=== PATIENT | male | born 1995 | race Caucasian/White ===

== ENCOUNTER 2022-05-13 14:03 | Emergency (ER) | payer MEDICAID, SELFPAY ==
[2022-05-13 14:11] VITALS: BP 142/91; PULSE 82; RESP 15; TEMP 36.4; O2SAT 97; BMI 40.6
--- NOTE | 2022-05-13 14:51 | ED_ITS ---
HPI - Neck Pain/Injury General: Chief Complaint: Neck Pain/Injury Stated Complaint: neck pain Time Seen by Provider: 05/13/22 14:34 Source: patient Mode of arrival: ambulatory History of Present Illness: 26-year-old male presents emerged complaining of neck pain pain with movement of his neck no pain radiating into the arms. He cannot recall any particular injury or event that precipitated it. No loss of function. No previous injury trauma or surgery. MD complaint: neck pain Onset (ago): day(s) Place: home Severity: moderate Duration: constant Relieving factors: none Exacerbating factors: none Associated symptoms: Denies dysphagia, difficulty walking, dizziness, fevers/chills, headache(s), nausea, swollen glands, tingling or weakness Treatments prior to arrival: none Review of Systems Const: Denies: fever(s), chills, body aches, change in appetite, fatigue or malaise ENMT: Denies: throat pain, ear or mastoid pain, nasal discharge or nasal congestion Card: Denies: chest pain, edema, dyspnea on exertion or orthopnea Resp: Denies: dyspnea, productive cough or non-productive cough GI: Denies: abdominal pain, nausea, vomiting or dysphagia : Denies: flank pain, dysuria, urinary frequency or urinary urgency Skin/Breast: Denies: rash or pruritus Neuro: Denies: headache(s), difficulty walking or dizziness PFSH ED PFSH: Medical History (Updated 05/13/22 @ 14:53 by Ricky Robles DO) Asthma Social History (Updated 05/13/22 @ 14:53 by Ricky Robles DO) Smoking and tobacco status: never smoked Alcohol intake: never Physical Exam Const: COMMON NORMALS: no acute distress GENERAL APPEARANCE: cooperative and comfortable ORIENTATION/CONSCIOUSNESS: Yes awake, Yes oriented to person, Yes oriented to place and Yes oriented to time HENMT: COMMON NORMALS: normocephalic, atraumatic and hearing grossly normal bilaterally HEAD & SCALP: normocephalic and atraumatic Resp: COMMON NORMALS: normal respiratory effort, No retractions, No use of accessory muscles and clear to auscultation bilaterally AUSCULTATION: clear to auscultation bilaterally Cardio: COMMON NORMALS: regular rate, regular rhythm and No murmurs present (Cardio) RATE: regular rate RHYTHM: regular rhythm GI: COMMON NORMALS: Soft to palpation and No hepatosplenomegaly present AUSCULTATION: Yes normoactive bowel sounds PALPATION: Yes Soft to palpation, No Tenderness to palpation present (GI), No Guarding due to palpation present (GI) and Yes No hepatosplenomegaly present Extremity: COMMON NORMALS: normal to inspection, capillary refill normal, no clubbing, cyanosis or edema, no calf tenderness and no pedal edema Neuro: SENSORIUM/ORIENTATION: Yes oriented to person, Yes oriented to place and Yes oriented to time Skin: COMMON NORMALS: no rashes or lesions noted GENERAL SKIN EXAM: no rashes or lesions noted Course Vital Signs: Vital signs: Vital Signs Temperature 97.5 F L 05/13/22 14:11 Pulse Rate 82 05/13/22 14:11 Respiratory Rate 15 05/13/22 14:11 Blood Pressure 142/91 05/13/22 14:11 Pulse Oximetry 97 05/13/22 14:11 Oxygen Delivery Me thod 05/13/22 14:11 MDM - Neck Pain/Injury Medical Decision Making No focal deficits no radicular like symptoms. Treat as musculoskeletal neck pain. No signs of meningeal irritation. At this point I do not think plain films would be very helpful there is no evidence of trauma or report by history. Discharge home with muscle relaxers and NSAIDs steroid taper follow-up with primary care if not improving. Medical Records I reviewed the patient's medical records. Lab Data I reviewed the patient's lab results. Discharge Plan Discharge Patient Disposition: Home Clinical Impression: Strain of neck muscle Condition: Stable Prescriptions: New prednisone 20 mg tablet 20 mg PO TID Qty: 15 0RF Rx Instructions: 1 p.o. 3 times daily x3 days, 1 p.o. twice daily x2 days, 1 p.o. daily x2 days diclofenac sodium 75 mg tablet,delayed release (DR/EC) 75 mg PO Q12H PRN (Reason: pain) Qty: 20 0RF tizanidine 4 mg tablet 4 mg PO Q6H PRN (Reason: muscle spasticity) Qty: 20 0RF Rx Instructions: do not exceed 3 doses per 24 hrs Discharge Orders: Discharge ED (Routine); Ordered 05/13/22 Ordered By: Ricky Robles Discharge Diet: Usual diet Discharge Activity: Limit activity as instructed Patient Instructions: Opioid Safety, Pain Management Coding Level of Care Code ED Sales Strategy Manager for Christina Thakkar
[2022-05-13] MEDS: dexamethasone 10 mg/mL INJ IVP (14:58)
[2022-05-13] MEDS: orphenadrine 30 mg/mL Inj 2 mL 60 MG IVP (15:00)
[2022-05-13] MEDS: ketorolac 30 mg/mL INJ IVP (15:02)
[2022-05-13 15:33] VITALS: BP 151/99; PULSE 88; RESP 16; O2SAT 97
== END 2022-05-13 15:35 | disposition home or self-care (01) ==
PROVIDERS: Emergency Provider Family Medicine
DX: S16.1XXA Strain of muscle, fascia and tendon at neck level, initial encounter (principal); X58.XXXA Exposure to other specified factors, initial encounter
CPT/HCPCS: 96374; 96375; 99284; J1100; J1885; J2360

== ENCOUNTER → 2022-07-04 14:35 | Outpatient (BNVA) | payer MEDICAID, SELFPAY | PROVIDERS: Visit Provider Nurse Practitioner Family | DX: J45.909 Unspecified asthma, uncomplicated (principal); R05.9 Cough, unspecified; E66.01 Morbid (severe) obesity due to excess calories; Z68.41 Body mass index [BMI] 40.0-44.9, adult; G47.33 Obstructive sleep apnea (adult) (pediatric) | CPT/HCPCS: 80053; 80061 ==

== ENCOUNTER 2024-02-22 13:19 | Outpatient (CLI) | payer MEDICAID, SELFPAY ==
--- NOTE | 2024-02-22 13:22 | XRR_ITS ---
PROCEDURE INFORMATION: Exam: XR Right Knee Exam date and time: 02/22/2024 1:33 PM Age: 28 years old Clinical indication: Right; Patient HX: -- RT knee pain that radiates down leg x 1 yr, grinding feeling in knee joint, no specific injury; Additional info: R knee joint pain TECHNIQUE: Imaging protocol: Radiologic exam of the right knee. Views: 3 views. COMPARISON: No relevant prior studies available. FINDINGS: Bones/joints: No acute fracture or dislocation. No significant joint space narrowing. No suprapatellar fullness or effusion. A small rounded to oval-shaped calcification or ossification overlies the posterior mid to lateral aspect of the knee joint, and consideration to loose body. A fabella is also suggested posteriorly. 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 Soft tissues: No significant focal soft tissue abnormality. XR/XR knee RT 3V* [id number] IMPRESSION: 1. No acute fracture or dislocation. 2. No significant joint space narrowing. 3. Small rounded oval-shaped calcification or ossification about the posterior mid to lateral aspect of the knee and consider loose body. 4. 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
== END 2024-02-22 13:20 | disposition home or self-care (01) ==
LOC: RAD 13:21
PROVIDERS: PCP Nurse Practitioner Family; Visit Provider Nurse Practitioner Family
DX: Q74.1 Congenital malformation of knee (principal); M25.761 Osteophyte, right knee
CPT/HCPCS: 73562

== ENCOUNTER → 2024-03-29 10:12 | Outpatient (BNVA) | payer MEDICAID, SELFPAY | PROVIDERS: PCP Nurse Practitioner Family; Visit Provider Student in an Organized Health Care Education/Training Program | DX: M25.561 Pain in right knee (principal); S83.8X1A Sprain of other specified parts of right knee, initial encounter; X58.XXXA Exposure to other specified factors, initial encounter; M23.41 Loose body in knee, right knee | CPT/HCPCS: 73560; 73565 ==

== ENCOUNTER 2024-05-14 16:05 | Outpatient (CLI) | payer MEDICAID, SELFPAY ==
--- NOTE | 2024-05-14 16:10 | MR_ITS ---
WS: [id number] MRI RIGHT KNEE NONCONTRAST TECHNIQUE: Axial PD, coronal PD fat sat, coronal PD, sagittal PD, and sagittal PD fat-sat images obta ined. CLINICAL INFORMATION: R/O MENISCAL INJURY COMPARISON: None. FINDINGS: ACL and PCL are intact. Distal quadriceps and patella tendons are intact. Grade III chondromalacia ad vanced for patient this age with lateral subluxation. Shallow trochlear groove. Recommend correlation for patellar instability. 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 1 or 2 additional bony fragments which may represe nt chronic avulsions or bipartite patella. Fissuring involving the lateral patellar facet advanced fo r patient this age. Tiny suspected osteochondral defect/loose body along the medial femoral condyle as seen on the radiog raph. This is difficult to visualize and measures approximately 5 mm. No edema. Distal quadriceps and patella tendons are intact. Medial and collateral ligaments appear intact. Smal l suprapatellar effusion. Normal popliteal fossa. Horizontal tear involving the lateral meniscus extending to the articular surface. Medial meniscus ap pears intact. No edema in the femoral condyles. Cystic appearing degenerative change along the tibial spine at the ACL insertion. MR/MR knee RT wo con* [id number] IMPRESSION: 1. Moderate chondromalacia patella with fissuring involving the lateral patell ar facet advanced for patient this age. Shallow trochlear groove. Lateral sublu xation of the patella. Recommend correlation for patellar instability. 2. Bony fragmentation involving the medial patellar facet with 3 separate frag ments suspicious for chronic unhealed avulsions. Eccentric crescent shaped frag ment suspicious for chronic avulsion. There may be superimposed bipartite yañez la as well. Chronic thinning of the medial patellar retinaculum. 3. Previously described osteochondral defect along the medial femoral condyle is difficult to visualize due to size and positioning measuring 4 to 5 mm but s uspicious for a small loose body. This is best seen on the axial imaging. 4. Horizontal tear involving the lateral meniscus extending to the articular s urface. Outbridge grading: grade III: partial-thickness cartilage loss with focal ulcer ation
== END 2024-05-14 16:06 | disposition home or self-care (01) ==
LOC: RAD 16:06
PROVIDERS: PCP Nurse Practitioner Family; Visit Provider Student in an Organized Health Care Education/Training Program
DX: M22.41 Chondromalacia patellae, right knee (principal); S83.001A Unspecified subluxation of right patella, initial encounter; S83.281A Other tear of lateral meniscus, current injury, right knee, initial encounter; X58.XXXA Exposure to other specified factors, initial encounter
CPT/HCPCS: 73721

== ENCOUNTER 2024-07-23 15:04 | Outpatient (CLI) | payer MEDICAID, SELFPAY | END 2024-07-23 15:05 | disposition home or self-care (01) | LOC: SLEEP 15:05 | PROVIDERS: PCP Nurse Practitioner Family; Visit Provider Nurse Practitioner Family | DX: G47.33 Obstructive sleep apnea (adult) (pediatric) (principal) | CPT/HCPCS: G0399 ==

== ENCOUNTER 2024-08-22 11:18 | Day surgery (SDC) | payer OTHER, MEDICAID, SELFPAY ==
[2024-08-22] VITALS (12 sets, daily range): BP systolic 120–156; BP diastolic 71–92; PULSE 74–105; RESP 16–18; TEMP 36.3–36.6; O2SAT 92–94; BMI 42.2
--- NOTE | 2024-08-22 12:09 | P.ANESASSM_ITS ---
Pre-Anesthetic Assessment Height/Weight: Height 1.85 m Weight 145.15 kg Operation Date: 08/22/24 13:45 Proposed Procedures p Knee Arthroscopy w/ Lateral Menisectomy vs repair(Right) - Chad Gloria DO s Loose Body Removal and possible microfracturing(Right) - Chad Gloria DO s patellofemoral chondroplasty(Right) - Chad Gloria DO Familial anesthetic complications: None Was Beta Rachna taken within 24 hours: N/A Was Clonidine taken within 24 hours: N/A Last intake: Intake Last Liquid Date 08/21/24 Last Liquid Time 21:30 Last Solid Date 08/21/24 Last Solid Time 21:30 Social No alcohol and No tobacco Exam alert, oriented x 3, clear to auscultation bilaterally and regular rate & rhythm Airway Mallampati: Class II Dentition: other (None) Comments: Comments: Large neck circumference Pulmonary Sleep Apnea CV/HEM Hypertension Anesthetic Plan ASA status: 3 Anesthesia: General Risk of > 500 ml blood loss (7ml/kg in children): No Medications/Allergies Home Medications ?Medication ?Instructions ?Recorded ?Confirmed ?Last Taken ?Type albuterol sulfate 90 mcg/actuation 2 puff inhalation 6 XD PRN 07/04/22 08/22/24 08/08/24 Rx aerosol inhaler (Ventolin HFA) shortness of breath or wheezing #8.5 grams budesonide-formoterol HFA 160 2 puff inhalation Q12H # 10.2 grams 07/04/22 08/22/24 08/21/24 Rx mcg-4.5 mcg/actuation aerosol inhaler (Symbicort) escitalopram oxalate 10 mg tablet 10 mg PO DAILY 30 da ys #30 tabs 09/06/22 08/21/24 08/21/24 Rx (Lexapro) mupirocin calcium 2 % topical cream 1 applic topical B ID #15 grams 09/06/22 08/21/24 Unknown Rx meloxicam 15 mg tablet 15 mg PO DAILY #30 tabs 03/1708/21/24 08/21/24 Rx Allergies Allergy/AdvReac Type Severity Reaction Status Date / Time No Known Allergies Allergy Verified 08/21/24 12:44 [facility] Anesthesia Medical History Obesity (BMI 30-39.9) Asthma Social History (Updated 07/04/24 @ 13:01 by Kelin Saini LPN) Smoking and tobacco/nicotine status: never used tobacco/nicotine Quit status (tobacco/nicotine): has quit using Former quit date comment: chewed tobacco Alcohol intake: never Data Anesthesia Cardiac Studies: No Data to Display
[2024-08-22] MEDS: sodium chloride 0.9% 1,000 ML 30 ML IV (12:29)
[2024-08-22] MEDS: ketorolac 30 mg/mL INJ IVP (12:30)
[2024-08-22] MEDS: acetaminophen 1,000 MG/100 ML PIGGYBACK 400 MG IV (12:35)
[2024-08-22] MEDS: scopolamine 1 mg PATCH 1 PATCH TRANSDERMA (12:43)
--- NOTE | 2024-08-22 12:43 | W.PM.OPSFHP ---
Same Day Surgery H&P Indication for Procedure/HPI DATE OF PROCEDURE: August 22, 2024 CHIEF COMPLAINT/INDICATIONFOR SURGICAL PROCEDURE: Right knee lateral meniscus tear, articular chondral defect, patellofemoral chondromalacia PREOP DIAGNOSIS: Right knee lateral meniscus tear, articular chondral defect, patellofemoral PLANNED PROCEDURE: Operation Date: 08/22/24 13:45 Proposed Procedures p Knee Arthroscopy w/ Lateral Menisectomy vs repair(Right) - DO nakul El Loose Body Removal and possible microfracturing(Right) - DO nakul El patellofemoral chondroplasty(Right) - Chad Gloria DO Medications/Allergies* Allergies/Adverse Reactions Allergy/AdvReac Type Severity Reaction Status Date / Time No Known Allergies Allergy Verified 08/21/24 12:44 Current Medications: Generic Name Dose Route Start Last Admin Trade Name Freq PRN Reason Stop Dose Admin Sodium Chloride 1,000 mls @ 30 mls/hr 08/22/24 11:45 08/22/24 12:29 Sodium Chloride 0.9% IV 08/23/24 11:44 30 mls/hr .Q24H ANDREW Administration Pertinent History/Comorbid Conditions* Medical History (Updated 07/21/24 @ 21:46 by Chad Gloria DO) Obesity (BMI 30-39.9) Asthma Social History Smoking and tobacco/nicotine status: never used tobacco/nicotine Quit status (tobacco/nicotine): has quit using Former quit date comment: chewed tobacco Alcohol intake: never Pertinent Exam Findings alert, oriented x 3, operative site marked and procedure specific exam findings Please refer to detailed orthopedic examination on 07/04/2024 listed below: Right Knee Exam: ROM 0 to greater than 120 degrees mild Patellar crepitus with ROM Medial joint line tenderness to palpation- Lateral joint line tenderness to palpation- Mild joint effusion Moses's-positive Negative Elijah's No clinical malalignment, correctable on exam Stable Varus and Valgus stress Gross motor sensory intact Tender over the retropatellar space negative patellar apprehension or instability Recommendations Surgery/Procedure today Other Plans: Plan to proceed to the OR today for right knee diagnostic and surgical arthroscopy with partial lateral meniscectomy versus repair, loose body removal, possible microfracturing, patellofemoral chondroplasty. Patient understands the ins and outs procedure the risk benefits complication alternatives of surgery and through shared decision make elects proceed with surgical invention. All questions answered at this time. Coding Level of Care Code Acute Code for Chg Fwd
[2024-08-22] MEDS: ceFAZolin 3,000 MG in sodium chloride 0.9% (plus) 100 ML 200 MG IV (12:48)
[2024-08-22] MEDS: lidocaine-epi 1% 20 mL INJ 40 ML INJECTION (13:42)
--- NOTE | 2024-08-22 14:19 | P.OP_ITS ---
Operative Report Date of procedure: August 22, 2024 Surgeon: Chad Gloria DO Product Applications Engineer: Devin Gloria PA-C: PA was necessary for assistance in this case with leg positioning, assistance with instrumentation, assistance in microfracturing, wound closure and dressing application. Procedure: Preoperative diagnosis: Right knee lateral meniscus tear, articular chondral defect, patellofemoral chondromalacia Post-op diagnosis: Right knee loose bodies, tear of lateral meniscus, Extensive synovitis, Patellofemoral grade 2 /3 chondromalacia.] Procedure done: Right?knee?diagnostic and surgical arthroscopy partial lateral meniscectomy Right knee diagnostic and surgical arthroscopy with removal loose bodies Right knee diagnostic and surgical arthroscopy with microfracturing chondral defect medial femoral condyle Right?knee?diagnostic and surgical arthroscopy with extensive synovectomy of the medial lateral and patellofemoral compartments Right?knee?diagnostic and surgical arthroscopy with patellofemoral compartment chondroplasty Surgeon: Chad Gloria DO Estimated blood loss: 2mL Tourniquet: No tourniquet was used IV fluids: See anesthesia record Complications: None Findings: See operative report narrative Condition: stable Disposition: same day Brief History: Patient is a 29-year-old male with right?knee?pain.? Patient has failed conservative treatment who has been worked up for right??knee?pain in the outpatient setting. MRI findings consistent with tear of the lateral meniscus, Possible loose bodies, medial femoral condyle chondral defect. talked in the office about treatment options patient would like to proceed with a right knee diagnostic and surgical arthroscopy with partial lateral meniscectomy versus repair, loose body removal, possible microfracturing, patellofemoral chondroplasty.? Patient understand the ins and outs of the procedure the risk benefits complication alternatives to treatment options.? Understanding risk of surgery they agree to proceed with surgical intervention.? Patient understand this may not provide patient with complete symptomatic relief of? pain as patient does have some underlying arthritis.? Understanding this and patient agree to proceed with surgical intervention all questions answered. Procedure: Patient seen and evaluated in the preoperative holding area.? Consent was reviewed and signed with patient.? Correct extremity was then marked.? Patient seen evaluated Anesthesia Department once cleared for surgery patient was taken back to the operative suite.? Patient was transported onto the OR table in supine position.? All bony prominences well-padded patient was appropriate secured to the bed.? Once appropriately anesthetized a nonsterile tourniquet was applied to the right thigh.? The right lower extremity was then prepped and draped in standard orthopedic fashion.? Final timeout performed.? Patient received appropriate preoperative antibiotics. Patient received local anesthetic of lidocaine with epinephrine into the joint as well as around the portal sites.? No tourniquet was inflated A standard 2 portal vertical incision diagnostic and surgical arthroscopy of the right?knee?was performed in standard fashion.? Small stab incision made in the inferolateral portal introduced trocar and arthroscope into the suprapatellar pouch.? Suprapatellar pouch was subsequently visualized and found to have significant synovitis but no loose bodies.? Patient had noticeable significant inflamed infrapatellar fat pad and thickening hypertrophic within the patellofemoral compartment.? ?The medial gutter was free of loose bodies I then introduced the arthroscope into the medial compartment.? Within the medial compartment I then established my inferior medial working portal utilizing spinal needle outside in technique.? Once established I then visualized our articular cartilage of the medial compartment with a valgus stress.? Patient was found to have grade 1 chondromalacia throughout the medial compartment.? Next I inspected the meniscus.? With an arthroscopic probe was utilized to visual? all aspects of the meniscus.? Meniscal root was found to be intact.? Meniscus was found no tear. The medial femoral condyle in the non weightbearing portion on the most medial edge had a focal full thicknessarticular chondral defect measuring roughly 6 mm in diameter and plan was for microfracturing. At this point in time utilized Pauly pick make sure fracturing set utilized arthroscopic shaver to debride the edges and then again as this was a focalized area of exposed subchondral bone I then subsequently used a microfracture kit with my shampoo assistant and made small perforations in standard microfracturing fashion and had good bone marrow and fat stem cell extrusion from the perforations completing the microfracturing as her appropriately spaced. ? Next, I then performed a synovectomy of the medial compartment.? This completed medial compartment work. Next a introduced the arthroscope to the intercondylar notch.? PCL and ACL were intact. patient had significant thickening of the infrapatellar fat pad spanning into the medial and lateral compartments.? I then performed an extensive synovectomy with the arthroscopic shaver of the patellofemoral medial and lateral compartments as well as the intercondylar notch. Advance the?scope?into the retrocruciate space and no loose bodies were found. Next I introduced the arthroscope into the lateral compartment the lateral compartment was found to have grade 1 chondromalacia.? Lateral meniscus was found to be Colon with a small tear at the anterior horn and body junction this was in the white white zone and decision was made for partial lateral meniscectomy this was used with arthroscopic basket forceps as well as arthroscopic shaver and thermal wand Aneel the edges unstable meniscal tissue was removed to stable meniscal tissue and a satisfactory partial lateral meniscectomy was performed..? The root was intact.? This completed my work of the lateral compartment and then performed a synovectomy of the lateral compartment.? Next of the arthroscope was placed into the lateral gutter This had 3 loose bodies in this recess were clearly evident from patient's cartilage defect and as a result utilize arthroscopic shaver and removed all loose bodies in this area.? Finally I reintroduced the arthroscope into the patellofemoral compartment.? The patellofemoral was found to have grade 2-3 chondromalacia of the patellofemoral compartment.?This point in time I utilized an arthroscopic shaver and thermal wand to perform a chondroplasty of the patellofemoral apartment as this had been most advanced arthritis for this patient. This was taken to stable articular tissue. At this point I utilized arthroscopic shaver as well as thermal wand to perform extensive synovectomy of the patellofemoral compartment. This completed my work of the patellofemoral space.? I then switch my portal sites to the medial working portal.? Completed the rest of my synovectomy and the rest of my examination arthroscopy was normal. All fluid was suctioned from the joint.? ?All instruments were withdrawn.? Portal sites were closed with interrupted nylon suture.? portal sites were then covered with with Xeroform 4 x 4's ABD Curlex and David wrap.? Patient was then subsequently awakened from anesthesia and taken to PACU in stable condition. Disposition: Patient taken to PACU in stable condition recovering well.? Will receive appropriate discharge structure as well as pain medication postoperatively as well as? DVT prophylaxis.we will have patient follow-up with us in the office in 2 weeks.? We will toe touch only weightbearing to the right lower extremity using crutches.? Patient understands and agrees with current plan.? All questions answered.
--- NOTE | 2024-08-22 14:34 | P.BOP_ITS ---
Date of Procedure: [August 22, 2024] Surgeon: [Dr. Juani DO] Chief Vendor Quality(s): [Devin orozco PA-C] Procedure(s) performed: [Right knee diagnostic surgical arthroscopy Microfracturing Removal of loose bodies Partial lateral meniscectomy Extensive synovectomy Patellofemoral chondroplasty] Findings of the procedure(s): [Right knee, loose body and partial tear of lateral meniscus. Extensive synovitis. Patellofemoral grade 2 /3 chondromalacia. Procedure went well and as planned.] Estimated blood loss: [2 mL] Specimen(s) removed: [N/A] Post-operative diagnosis: [Right knee, loose body and partial tear of lateral meniscus. Extensive synovitis. Patellofemoral grade 2 /3 chondromalacia.]
--- NOTE | 2024-08-22 14:38 | PM.PACU ---
PACU note Narrative: Patient is a 29-year-old male who just underwent a right knee diagnostic and surgical arthroscopy. Pt transferred to PACU in stable condition. Dressing is dry. pt is awake and alert. pt can wiggle toes and plantarflex and dorsiflex foot. pt able to perform straight leg raise, Femoral nerve intact. Distal pulses are palpable toes are warm and well-perfused. Cap refill is normal and under 2 seconds. Sensation to foot is intact. Pain is controlled. Exam: awake Disposition: discharged
== END 2024-08-22 16:10 | disposition home or self-care (01) ==
PROVIDERS: PCP Nurse Practitioner Family; Visit Provider Student in an Organized Health Care Education/Training Program
PROC: (CPT 29870; principal; 2024-08-22 13:45)
PROC: (CPT 29876; 2024-08-22 13:45)
PROC: (CPT 29876; 2024-08-22 13:45)
PROC: (CPT 29876; 2024-08-22 13:45)
DX: S83.281A Other tear of lateral meniscus, current injury, right knee, initial encounter (principal); M22.41 Chondromalacia patellae, right knee; M65.861 Other synovitis and tenosynovitis, right lower leg; M23.41 Loose body in knee, right knee; Z79.899 Other long term (current) drug therapy; I10 Essential (primary) hypertension; Z87.891 Personal history of nicotine dependence
CPT/HCPCS: 29876; 29881; 29879; J0131; J0330; J0690; J1100; J1885; J2250; J2405; J2704; J3010; J7030

== ENCOUNTER 2024-11-26 21:23 | Observation (INO) | payer SELFPAY ==
[2024-11-26 21:29] VITALS: BP 149/89; PULSE 105; RESP 18; TEMP 37; O2SAT 93; BMI 38.9
--- NOTE | 2024-11-26 21:36 | ECG_ITS ---
[employer] Test Date: 2024-11-26 Pat Name: Yonatan Myers Department: Room: Gender: Male Adjunct English Instructor: : [id number] Requested By: Shawn Hercules Order Number: [id number] Pao MD: FRANCIS LOPEZ Measurements Intervals Delton Rate: 102 P: 31 NM: 142 QRS: 4 QRSD: 96 T: 29 QT: 345 QTc: 449 Interpretive Statements SINUS TACHYCARDIA LOW QRS VOLTAGE IN PRECORDIAL LEADS [QRS DEFLECTION < 1.0 mV IN CHEST LEADS] NONSPECIFIC T-WAVE ABNORMALITY ABNORMAL RHYTHM ECG No previous ECG available for comparison Electronically Signed On 11-28-2024 23:32:38 CDT by FRANCIS LOPEZ [id number]
[2024-11-26 21:37] VITALS: BP 129/97; PULSE 105; RESP 17; O2SAT 92
--- NOTE | 2024-11-26 21:37 | CTR_ITS ---
PROCEDURE INFORMATION: Exam: CTA Chest With Contrast Exam date and time: 11/26/2024 9:51 PM Age: 29 years old Clinical indication: Shortness of breath; Additional info: SOB, syncope, hypoxia, tachycardia, concern for pe TECHNIQUE: Imaging protocol: Computed tomographic angiography of the chest with contrast. Exam focused on the arteries. 3D rendering (Not supervised by radiologist): MIP and/or 3D reconstructed images were created by the technologist. Radiation optimization: All CT scans at this facility use at least one of these dose optimization techniques: automated exposure control; mA and/or kV adjustment per patient size (includes targeted exams where dose is matched to clinical indication); or iterative reconstruction. Contrast material: OMNI 350; Contrast volume: 100 ml; Contrast route: INTRAVENOUS (IV); COMPARISON: ES surgery / GI images 08/22/2024 11:29 AM RADIATION DOSE METRICS: Total DLP (mGy-cm): 486.7 FINDINGS: Pulmonary arteries: Normal. No pulmonary emboli. Aorta: Unremarkable. No aortic aneurysm. No aortic dissection. Lungs: Dependent atelectasis throughout the lungs bilaterally. No focal consolidation or generalized interstitial process. No suspicious pulmonary nodules. Low lung volumes. Calcified right upper lobe granuloma. Pleural spaces: Unremarkable. No pneumothorax. No pleural effusion. Heart: Unremarkable. No cardiomegaly. No pericardial effusion. Esophagus: Mildly patulous esophagus. Lymph nodes: Unremarkable. No enlarged lymph nodes. Liver: Hepatic steatosis. The liver appears enlarged. Spleen: The spleen measures 13.7 cm in length. Bones/joints: Unremarkable. No acute fracture. Soft tissues: Unremarkable. CT/CT angio chest PE protcl [id number] IMPRESSION: 1. No evidence of pulmonary embolism. 2. Low lung volumes with scattered hypoventilatory changes within the lungs. 3. Hepatic steatosis. 4. Hepatosplenomegaly.
--- NOTE | 2024-11-26 21:42 | ED_ITS ---
HPI - SOB/Dyspnea 2 General: Chief Complaint: Shortness of Breath/Dyspnea Stated Complaint: SOB Time Seen by Provider: 11/26/24 21:29 History of Present Illness: HPI Narrative: Patient is a 29-year-old male with history of asthma and sleep apnea for which he wears CPAP and takes albuterol and inhaled steroid as needed seen for 2 weeks of worsening cough, shortness of breath, lightheadedness, and 2 bouts of syncope over the last 2 days. He has no history of PE or cardiac disease of which she is aware. There are no other sick contacts in the home. He has not had a fever. He states that his cough is productive of clear sputum. With worsening symptoms over 2-week. He now decided come the emergency department. He denies unilateral leg swelling, redness, or pain. He has not had any recent hospitalizations, surgeries, or long travel. He does not drink alcohol or smoke cigarettes. He has no other acute complaints. Related Data Previous Rx's ?Medication ?Instructions ?Recorded albuterol sulfate 90 mcg/actuation 2 puff inhalation 6 XD PRN 07/04/22 aerosol inhaler (Ventolin HFA) shortness of breath or wheezing #8.5 grams budesonide-formoterol HFA 160 2 puff inhalation Q12H # 10.2 grams 07/04/22 mcg-4.5 mcg/actuation aerosol inhaler (Symbicort) escitalopram oxalate 10 mg tablet 10 mg PO DAILY 30 da ys #30 tabs 09/06/22 (Lexapro) mupirocin calcium 2 % topical cream 1 applic topical B ID #15 grams 09/06/22 meloxicam 15 mg tablet 15 mg PO DAILY #30 tabs 03/17 10/07 hydrocodone 7.5 mg-acetaminophen 1 tab PO Q6H PRN pain #20 tabs 08/22/24 325 mg tablet right knee economy knee brace #1 ea 09/06/24 Allergies Allergy/AdvReac Type Severity Reaction Status Date / Time No Known Allergies Allergy Verified 09/06/24 10:56 PFS ED 2 PFSH: Medical History (Updated 11/27/24 @ 04:07 by Shawn Feliciano MD) Obesity (BMI 30-39.9) Asthma Surgical History History of right knee surgery Done by Dr. Gloria in 08/2024 for partial tear of the lateral meniscus and patelofemoral chondromalacia, and extensive synovitis. H/O sinus surgery around age 17 or 18yrs old, done at [facility] Family History (Updated 11/27/24 @ 04:07 by Remedios Zaragoza MD) Mother Chronic venous stasis Father Heart disease Grandfather Heart disease Brain cancer Diabetes mellitus, type 2 Social History (Updated 11/27/24 @ 04:08 by Remedios Zaragoza MD) Smoking and tobacco/nicotine status: never used tobacco/nicotine Quit status (tobacco/nicotine): has quit using Former quit date comment: chewed tobacco from age 13 to 20. Alcohol intake: never Substance/Drug Use: never Physical Exam 2 Const: COMMON NORMALS: no acute distress, patient oriented x3 and alert HENMT: COMMON NORMALS: normocephalic and atraumatic HEAD & SCALP: n ormocephalic and atraumatic Eye: COMMON NORMALS: Equal, round and reactive pupils present, EOMs intact bilaterally and no scleral icterus PUPIL: Yes Equal, round and reactive pupils present Chest: OTHER: No intercostal retractions Resp: OTHER: Mild tachypnea, clear lungs, no wheezes. No crackles. Cardio: OTHER: Tachycardic, regular rhythm. No murmur GI: COMMON NORMALS: Normal to inspection, nondistended, normoactive bowel sounds present, Soft to palpation and non-tender PALPATION: Yes Soft to palpation Neuro: COMMON NORMALS: patient oriented x3 SENSORIUM/ORIENTATION: Yes alert Skin: COMMON NORMALS: no rashes or lesions noted GENERAL SKIN EXAM: no rashes or lesions noted Course 2 Vital Signs: Vital signs: Vital Signs Temperature 98.6 F 11/26/24 21:29 Pulse Rate 102 H 11/27/24 02:53 Respiratory Rate 23 H 11/27/24 02:53 Blood Pressure 154/98 11/27/24 02:53 Pulse Oximetry 91 11/27/24 02:53 Oxygen Delivery Me thod Room Air 11/27/24 02:53 Oxygen Flow Rate 2 11/27/24 01:00 MDM - SOB/Dyspnea Medical Decision Making In summary, patient is a 29-year-old male seen for 2 weeks of coughing, nausea, decreased oral intake, and most recently syncope. He has had 3 events where he lost consciousness and collapsed in the last 2 days. Respiratory pathogen panel is positive for parainfluenza virus which is likely the etiology of his symptoms. He arrived hypoxic and tachycardic. CTA did not show evidence of PE or pneumonia. He was requiring 2 L nasal cannula to stay above 90% despite breathing treatments and Solu-Medrol for asthma exacerbation. Given his ongoing tachycardia and hypoxia he will be admitted observation status to the hospitalist service. Body habitus is such that he may stand a chance of serious morbidity or mortality if viral process continues to cause tachycardia and syncope which could lead to periods of anoxia. For this reason he will be observed in the hospital until vital signs improve, possibly with further breathing treatments. Lab Data 11/26/24 21:34 11/26/24 21:34 Labs/Radiology: Radiology Impressions Chest CTA 11/26/24 21:37 IMPRESSION: 1. No evidence of pulmonary embolism. 2. Low lung volumes with scattered hypoventilatory changes within the lungs. 3. Hepatic steatosis. 4. Hepatosplenomegaly. Laboratory Results WBC 8.67 10^3/uL (3.29-11.43) 11/26/24 21: RBC 5.41 10^6/uL (3.85-5.65) 11/26/24: Hgb 15.60 g/dL (11.27-16.99) 11/26/24: Hct 47.2 % (37-53) 11/26/24: MCV 87.2 fl (82-101) 11/26/24: MCH 28.8 pg (27-33) 11/26/24 21: MCHC 33.1 g/dL (30-55) 11/26/24: RDW 12.7 % (12.1-15.1) 11/26/24: Plt Count 272 10^3/cmm (157-399) 11/26/24: MPV 10.1 fL (7.4-10.4) 11/26/24 21: Neut % (Auto) 60.3 % 11/26/24: Lymph % (Auto) 21.2 % 11/26/24: [place] % (Auto) 13.8 % 11/26/24 21:34 Eos % (Auto) 3.8 % 11/26/24 21:34 Baso % (Auto) 0.6 % 11/26/24 21:34 Neut # (Auto) 5.22 10^3/uL (1.8-7.7) 11/26/24 21:34 Lymph # (Auto) 1.8 10^3/uL (0.8-4.8) 11/26/24 21:34 [place] # (Auto) 1.2 10^3/uL (0.2-0.9) H 11/26/24 21:34 Eos # (Auto) 0.3 10^3/uL (0.0-0.8) 11/26/24: Baso # (Auto) 0.1 10^3/uL (0.0-0.1) 11/26/24 21:34 Nucleated RBC % (auto) 0 % 11/26/24: Nucleated RBCs # 0.0 /100WBC 11/26/24 21: PT 13.30 SECONDS (12.1-14.9) 11/26/24 21: INR 0.94 (0.8-1.2) 11/26/24 21: APTT 27.6 SECONDS (23.9-36.7) 11/26/24 21:34 Sodium 143 mmol/L (136-145) 11/26/24 21:34 Potassium 3.3 mmol/L (3.5-5.1) L 11/26/24: Chloride 104 mmol/L (98-107) 11/26/24: Carbon Dioxide 26 mmol/L (22-29) 11/26/24 21:34 Anion Gap 16.3 (5-19) 11/26/24 21:34 BUN 10 mg/dL (6-20) 11/26/24 21:34 Creatinine 1.2 mg/dL (0.7-1.2) 11/26/24:34 GFR Calculation 71.1 mL/min (90-130) L 11/26/24 21:34 Glucose 104 mg/dL (65-115) 11/26/24 21: Calculated Osmolality 295 mOsm/kg (285-295) 11/26/24:34 Lactic Acid 1.9 mmol/L (0.5-2.2) 11/26/24 21:34 Calcium 9.5 mg/dL (8.5-10.5) 11/26/24 21:34 Magnesium 1.6 mg/dL (1.7-2.3) L 11/26/24 23:36 Total Bilirubin 0.8 mg/dL (0.15-1.2) 11/26/24 21:34 AST 29 U/L (0-40) 11/26/24 21:34 ALT 56 U/L (0-41) H 11/26/24 21:34 Alkaline Phosphatase 84 U/L (40-130) 11/26/24 21:34 Troponin T Baseline < 6 ng/L (0-15) 11/26/24 21:34 Troponin T 120 Minute < 6.0 ng/L (0-15) 11/26/24 23:36 Delta Troponin T 0 ABS# (0-10) 11/26/24 23:36 NT-Pro-B Natriuret Pep < 36 pg/mL (0-125) 11/26/24 21:34 Total Protein 7.2 g/dL (6.6-8.7) 11/26/24 21:34 Albumin 4.2 g/dL (3.5-5.2) 11/26/24 21:34 Globulin 3.0 g/dL (1.3-4.6) 11/26/24 21:34 Adenovirus (PCR) Not detected (NOT DETECT) 11/26/24 21:36 C. pneumoniae DNA (PCR) Not detected (NOT DETECT) 11/26/24 21:36 Coronavirus 229E (PCR) Not detected (NOT DETECT) 11/26/24 21:36 Human Metapneumovir PCR Not detected (NOT DETECT) 11/26/24 21:36 Influenza A (H1) PCR Not detected (NOT DETECT) 11/26/24 21:36 Influ A (H1/09) PCR Not detected (NOT DETECT) 11/26/24 21:36 Influenza A (H3) PCR Not detected (NOT DETECT) 11/26/24 21:36 Influenza Type A (PCR) Not detected (NOT DETECT) 11/26/24 21:36 Influenza Type B (PCR) Not detected (NOT DETECT) 11/26/24 21:36 M. pneumoniae (PCR) Not detected (NOT DETECT) 11/26/24 21:36 Parainfluenza 1 (PCR) Not detected (NOT DETECT) 11/26/24 21:36 Parainfluenza 2 (PCR) Not detected (NOT DETECT) 11/26/24 21:36 Parainfluenza 3 (PCR) Detected (NOT DETECT) A 11/26/24 21:36 Parainfluenza 4 (PCR) Not detected (NOT DETECT) 11/26/24 21:36 RSV Type A (PCR) Not detected (NOT DETECT) 11/26/24 21:36 RSV Type B (PCR) Not detected (NOT DETECT) 11/26/24 21:36 Entero/Rhino (PCR) Not detected (NOT DETECT) 11/26/24 21:36 SARS-CoV-2 (PCR) Not detected (NOT DETECT) 11/26/24 21:36 All radiology interpretation(s) finalized by discharge EKG Data EKG 1: Interpretation: Time?2124?sinus tachycardia, rate of 102, no ST segment elevation or depression, no T wave inversions, intervals within normal limits. QTc = 403 Discharge Plan Discharge Patient Disposition: Placed in Observation Clinical Impression: Asthma exacerbation, Syncope, Parainfluenza infection Discharge Diet: Advance as tolerated Discharge Activity: Increase activity as tolerated Coding Level of Care Code ED Tissue Coordinator for Christina Thakkar
[2024-11-26 21:43] LABS: Basophils # 0.1 10^3/uL (0.0-0.1); Basophils % 0.6 %; Eosinophils # 0.3 10^3/uL (0.0-0.8); Eosinophils % 3.8 %; Hematocrit 47.2 % (37-53); Lymphocytes # 1.8 10^3/uL (0.8-4.8); Lymphocytes % 21.2 %; Mean Corpuscular HGB Conc 33.1 g/dL (30-55); Mean Corpuscular Hemoglobin 28.8 pg (27-33); Mean Corpuscular Volume 87.2 fl (82-101); Mean Platelet Volume 10.1 fL (7.4-10.4); Monocytes # 1.2 10^3/uL (0.2-0.9); Monocytes % 13.8 %; Neutrophils # 5.22 10^3/uL (1.8-7.7); Neutrophils % 60.3 %; Nucleated Red Blood Cells % 0 %; Platelet Count 272 10^3/cmm (157-399); Red Blood Count 5.41 10^6/uL (3.85-5.65); Red Cell Distribution Width 12.7 % (12.1-15.1); White Blood Count 8.67 10^3/uL (3.29-11.43)
[2024-11-26] MEDS: iohexol 350 mg/mL 500 mL Btl (per mL) IV (21:44)
[2024-11-26 21:56] LABS: INR 0.94 (0.8-1.2); Partial Thromboplastin Time 27.6 SECONDS (23.9-36.7)
[2024-11-26 22:04] LABS: Lactic Sepsis W/Reflex 1.9 mmol/L (0.5-2.2)
[2024-11-26 22:06] LABS: Troponin(5th) Baseline < 6 ng/L (0-15)
[2024-11-26 22:14] LABS: Alanine Aminotransferase 56 U/L (0-41); Albumin Level 4.2 g/dL (3.5-5.2); Alkaline Phosphatase 84 U/L (40-130); Anion Gap 16.3 (5-19); Aspartate Amino Transferase 29 U/L (0-40); Blood Urea Nitrogen 10 mg/dL (6-20); Calcium 9.5 mg/dL (8.5-10.5); Carbon Dioxide 26 mmol/L (22-29); Chloride 104 mmol/L (98-107); Creatinine Clr Calc Pharmacy 129.1787; Glomerular Filtration Rate 71.1 mL/min (90-130); Glucose 104 mg/dL (65-115); NT Pro B Type Natriuretic Pept < 36 pg/mL (0-125); Osmolality Calculated 295 mOsm/kg (285-295); Potassium 3.3 mmol/L (3.5-5.1); Sodium 143 mmol/L (136-145); Total Bilirubin 0.8 mg/dL (0.15-1.2); Total Protein 7.2 g/dL (6.6-8.7)
[2024-11-26] MEDS: sodium chloride 0.9% 1,000 ML 999 ML IV (22:16)
[2024-11-26 22:47] VITALS: BP 116/67; PULSE 95; RESP 20; O2SAT 95
[2024-11-26] MEDS: methylPREDNISolone sod succ 125 mg/2 mL INJ IVP (23:49)
[2024-11-26 23:50] VITALS: BP 147/94; PULSE 96; RESP 22; O2SAT 94
[2024-11-26 23:59] LABS: Troponin 5 2HR < 6.0 ng/L (0-15); Troponin 5 2HR Delta 0 ABS# (0-10)
[2024-11-27] VITALS (26 sets, daily range): BP systolic 114–154; BP diastolic 70–109; PULSE 84–115; RESP 16–23; TEMP 36.5–36.8; O2SAT 91–97; BMI 44.3
[2024-11-27 00:49] LABS: Adenovirus Not Detected (NOT DETECT); Chlamydia Pneumoniae Not Detected (NOT DETECT); Coronavirus 229E,HKU1,NL63,OC4 Not Detected (NOT DETECT); Human Metapneumovirus Not Detected (NOT DETECT); Human Rhinovirus/Enterovirus Not Detected (NOT DETECT); Influenza A Not Detected (NOT DETECT); Influenza A H1 Not Detected (NOT DETECT); Influenza A H1-2009 Not Detected (NOT DETECT); Influenza A H3 Not Detected (NOT DETECT); Influenza B Not Detected (NOT DETECT); Mycoplasma Pneumoniae Not Detected (NOT DETECT); Parainfluenza Virus Type 1 Not Detected (NOT DETECT); Parainfluenza Virus Type 2 Not Detected (NOT DETECT); Parainfluenza Virus Type 3 Detected (NOT DETECT); Parainfluenza Virus Type 4 Not Detected (NOT DETECT); Respiratory Syncytial Virus A Not Detected (NOT DETECT); Respiratory Syncytial Virus B Not Detected (NOT DETECT); SARS-COV-2 Not Detected (NOT DETECT)
[2024-11-27 02:58] LABS: Magnesium 1.6 mg/dL (1.7-2.3)
--- NOTE | 2024-11-27 03:04 | P.HP_ITS ---
Providers/Chief Complaint 2 Admitting Physician: Remedios Zaragoza MD Chief Complaint: SOB History of Present Illness Yonatan Myers is a 29 year old male w/ class II obesity, Asthma dx'ed since age approximately 5yrs, severe JOVANY on CPAP, who presented to the ED on 11/26/2024 w/ complaints of 2 weeks of progressive dyspnea and syncope x 3. The patient developed a cough 2 weeks ago which he thought was a common cold, so he took cough drops and cough medicine, along w/ his CPAP and inhalers. He states that his cough worsened to the point that he coughed so hard that he was spitting up blood. He coughed so hard that lost consciousness. He was sitting on the porch on Monday11/25/2024, then he started coughing, became SOB, and then went limp. He is unable to state whether he lost consciousness, but states that when he came to, He started shaking. He turned on the fan to get better airflow, used his inhalers, put on his CPAP and went to sleep. He woke up a short while later, dizzy, nauseous, and still dyspneic. On the day of presentation, he woke up dyspneic, and struggling with air all day long. He became nauseous and had an episode of bilious emesis x 1, which was tinged with blood, but he attributes the blood to copious coughing. When he regained consciousness, he finally decided to present to the ED after being convinced by his to present to the ED. He states that his cough is non-productive, but he has a headache when he coughs. He endorses having an appetite, but states that he is afraid to eat because it makes him feel nauseous and vomit. He feels that his episode of emesis on the day of presentation is due to his attempting to eat, then becoming nauseous and vomiting. He endorses wheezes, and soreness of his b/l ribs. He denies fever, chills. In the ED, he was tachycardic and tachypneic and required 2L NC. He had no leukocytosis, but was hypokalemic and hypomagnesemic. His respiratory pathogen panel was positive for Parainfluenza. Review of Systems 2 Const: Reports: fatigue and malaise; Denies: fever(s), chills, change in appetite, night sweats or diaphoresis Eyes: Denies: change in vision or blurry vision ENMT: Denies: odynophagia, ear or mastoid pain, ear discharge, nasal discharge or nasal congestion Card: Reports: palpitations, lightheadedness and syncope; Denies: chest pain Resp: Reports: dyspnea, non-productive cough and wheezing GI: Reports: nausea and vomiting; Denies: abdominal pain, hematemesis, hematochezia or melena : Denies: difficulty urinating, dysuria, urinary frequency, urinary urgency or hematuria Musc: Reports: other (no myalgias); Denies: joint pain Skin/Breast: Denies: rash or new lesions Neuro: Reports: headache(s) and dizziness Psych: Denies: anxiety, depression, visual hallucinations, auditory hallucinations, suicidal ideation or homicidal ideation Endo: Denies: cold intolerance or heat intolerance Saurabh/Lymph: Denies: easy bruising or easy bleeding All/Imm: Denies: food intolerance Medications/Allergies Home Medications ?Medication ?Instructions ?Recorded ?Confirmed ?Last Taken ?Type albuterol sulfate 90 mcg/actuation 2 puff inhalation 6 XD PRN 07/04/22 09/06/24 08/08/24 Rx aerosol inhaler (Ventolin HFA) shortness of breath or wheezing #8.5 grams budesonide-formoterol HFA 160 2 puff inhalation Q12H # 10.2 grams 07/04/22 09/06/24 08/21/24 Rx mcg-4.5 mcg/actuation aerosol inhaler (Symbicort) escitalopram oxalate 10 mg tablet 10 mg PO DAILY 30 da ys #30 tabs 09/06/22 09/06/24 08/21/24 Rx (Lexapro) mupirocin calcium 2 % topical cream 1 applic topical B ID #15 grams 09/06/22 09/06/24 Unknown Rx meloxicam 15 mg tablet 15 mg PO DAILY #30 tabs 03/1709/06/24 08/21/24 Rx hydrocodone 7.5 mg-acetaminophen 1 tab PO Q6H PRN pain #20 tabs 08/22/24 09/06/24 Unknown Rx 325 mg tablet right knee economy knee brace #1 ea 09/06/24 09/06/24 Unknown Rx Allergies Allergy/AdvReac Type Severity Reaction Status Date / Time No Known Allergies Allergy Verified 09/06/24 10:56 PFSH Acute 2 PFSH: Medical History (Updated 11/27/24 @ 07:34 by Remedios Zaragoza MD) Obesity (BMI 30-39.9) Asthma Surgical History History of right knee surgery Done by Dr. Gloria in 08/2024 for partial tear of the lateral meniscus and patelofemoral chondromalacia, and extensive synovitis. H/O sinus surgery around age 17 or 18yrs old, done at [facility] Family History (Updated 11/27/24 @ 04:07 by Remedios Zaragoza MD) Mother Chronic venous stasis Father Heart disease Grandfather Heart disease Brain cancer Diabetes mellitus, type 2 Social History (Updated 11/27/24 @ 04:08 by Remedios Zaragoza MD) Smoking and tobacco/nicotine status: never used tobacco/nicotine Quit status (tobacco/nicotine): has quit using Former quit date comment: chewed tobacco from age 13 to 20. Alcohol intake: never Substance/Drug Use: never Vitals/I&O/Wt Last Vital Signs Temp 98.6 F 11/26/24 21:29 Pulse 102 H 11/27/24 02:53 Resp 23 H 11/27/24 02:53 BP 154/98 11/27/24 02:53 Pulse Ox 91 11/27/24 02:53 O2 Del Method Room Air 11/27/24 02:53 O2 Flow Rate 2 11/27/24 01:00 11/26/24 11/26/24 11/27/24 14:59 22:59 06:59 Intake Total 0 / 0 1000 / 1000 Balance 0 / 0 1000 / 1000 Weight last 48 hrs Weight 133.81 kg Physical Exam 2 Const: GENERAL APPEARANCE: cooperative and comfortable NUTRITIONAL APPEARANCE: obese and overweight ORIENTATION/CONSCIOUSNESS: Yes awake, Yes oriented to person, Yes oriented to place and Yes oriented to time HENMT: HEAD & SCALP: normocephalic and atraumatic NOSE: Normal external nose present EXTERNAL EAR: Yes external ears normal MOUTH: Normal oral and palatal mucosa present THROAT: posterior oropharynx normal Eye: CONJUNCTIVA: Yes conjunctivae normal PUPIL: Yes Equal, round and reactive pupils present EOM: No EOM abnormal Neck/C-Spine: GENERAL: Yes normal visual inspection and Yes trachea midline THYROID: Thyroid normal CAROTIDS: No bruit Chest: OTHER: no cervical or supraclavicular LAD Resp: OTHER: CTAB, no w/r/r. Increased Work of breathing - grunting with exhaling Cardio: OTHER: RRR, no m/r/g or clicks. 2+ radial and DP pulses GI: OTHER: BS+, NT, ND, no guarding, no rigidity, no rebound tenderness or hepatosplenomegaly. Extremity: GENERAL: No clubbing, No cyanosis and No edema Neuro: CRANIAL NERVES: Yes CN normal except as noted SPEECH: speech normal SENSORY EXAM: No sensory level loss detected MOTOR EXAM: 5/5 motor strength present throughout and No Abnormal muscle tone present Psych: APPEARANCE: Yes grossly normal ATTITUDE: Yes calm and Yes engaged ACTIVITY/MOTOR BEHAVIOR: Yes appropriate eye contact SPEECH: Yes normal speech MOOD & AFFECT: Yes euthymic mood THOUGHT PROCESS: Normal thought process present THOUGHT CONTENT: Yes Normal thought content present A TTENTION/CONCENTRATION: Yes attention grossly intact MEMORY/COGNITION: Yes memory grossly intact Skin: GENERAL SKIN EXAM: no rashes or lesions noted Data 11/26/24 21:34 11/26/24 21:34 Micro: Microbiology 11/26/24 22:20 Blood Culture - Preliminary Blood SPECIMEN COLLECTED 11/26/24 22:16 Blood Culture - Preliminary Blood SPECIMEN COLLECTED A&P Assessment and plan (1) Asthma exacerbation: (2) Syncope: (3) Acute hypoxic respiratory failure: (4) Infection due to parainfluenza virus 3: (5) JOVANY (obstructive sleep apnea): (6) Cough: Plan Yonatan Myers is a 29 year old male w/ class II obesity, Asthma dx'ed since age approximately 5yrs, severe JOVANY on CPAP, who presented to the ED on 11/26/2024 w/ complaints of 2 weeks of progressive dyspnea and syncope x 3. In the ED, he was tachycardic and tachypneic and required 2L NC. He had no leukocytosis, but was hypokalemic and hypomagnesemic. His respiratory pathogen panel was positive for Parainfluenza. #SIRS: F/u BCx, Sputum cx #Acute hypoxic respiratory failure: wean O2 as tolerated. #Asthma exacerbation - likely due to Parainfluenza infection: continue steroids, duonebs. Held symbicort. - F/u sputum cx #Parainfluenza infection: supportive treatment - Ordered dextromethorphan-guaifenesin and tessalon perles #severeOSA on CPAP: - He tells me that he was told that his JOVANY was severe. Ordered CPAP #Syncope: likely vasovagal due to coughing and possibly hypovolemia - Ordered 2L NS total. #Hypokalemia #Hypomagnesemia - Ordered 40mEQ K IV and 4g of MgSO4 IV #Class II obesity #Hyperlipidemia DVT ppx: Lovenox GI ppx: PPI ordered. PDMP PDMP Reviewed: Not Reviewed Attestations 2 Medical Necessity Statement*: Patient is admitted as observation for Syncope and his Parainfluenza infection, but may need to be hospitalized for >2 midnights due to meeting SIRS criteria, his Acute hypoxi respiratory failure, electrolyte abnormalities. Coding Level of Care Code 70464 High Time for a total of 75 minutes, includes reviewing past or interval history, examining/interviewing patient, placing orders, counseling patient/family/other support, updating patient/family/other support, discussing plan of care with staff, communicating with other healthcare providers, documenting encounter and coordinating care Diagnoses Asthma exacerbation J45.901 Syncope R55 Acute hypoxic respiratory failure J96.01 Infection due to parainfluenza virus 3 B34.8 JOVANY (obstructive sleep apnea) G47.33 Cough R05.9
[2024-11-27] MEDS: sodium chloride 0.9% 1,000 ML 250 ML IV (03:49)
[2024-11-27 04:19] LABS: Troponin 5 6HR < 6.0 ng/L (0-15); Troponin 5 6HR Delta 0 ng/L (0-12)
[2024-11-27] MEDS: lidocaine 1% 5 ML in potassium chloride premix 100 ML 26.25 ML IV (05:01)
[2024-11-27] MEDS: magnesium sulfate premix 4 GM/100 ML PREMIX IV (05:01)
[2024-11-27] MEDS: benzonatate 100 mg Capsule 200 MG PO ×3 (05:03→21:50)
[2024-11-27] MEDS: ipratropium-albuterol 3 mL Neb INHALATION ×6 (05:13→20:36)
--- NOTE | 2024-11-27 06:34 | PC.NURSE ---
Addendum entered by Melania Wilkes RN 11/27/24 06:55: Nurse error - charted on the wrong patient. Original Note: This nurse answered the call light and the pt was on the bedside commode ready to get back to bed. Pt began to pull on the walker to lift herself up, this nurse educated the pt on the correct way to stand from the commode, pt replied I know and I can do it when I am not in as much pain . Pt family stated that the pt was supposed to have her dressing changed last night and it never got done. This nurse addressed the dressing change comment with the pt care nurse, Evon. Evon stated that she offered twice and the pt declined both times saying that she was too weak to sit at the side of the bed due to her Valium. Went back into the room and told the patient and family what Evon relayed to writer producer about offering to do the dressing change. The patient's response was yeah well, I just get so confused, ok . Ensured them both that we weren't just not doing the dressing change.
[2024-11-27] MEDS: pantoprazole DR 40 mg Tablet PO (09:47)
[2024-11-27] MEDS: methylPREDNISolone sod succ 40 mg/mL INJ IVP ×2 (09:47→21:53)
[2024-11-27] MEDS: sodium chloride 0.9% 1,000 ML 200 ML IV (09:47)
--- NOTE | 2024-11-27 12:51 | P.MISC_ITS ---
Miscellaneous Note Purpose of Documentation: Overnight labs and H&P reviewed. Patient admitted overnight for acute para influenza infection resulting in acute asthma exacerbation. CT of the chest performed last night was negative for any PE. No consolidation was noted. Patient also has sleep apnea/obesity hypoventilation and is on CPAP. He has been nauseous for several days and has had poor p.o. intake. Currently on 2 L/min supplemental O2. Will obtain ABG. Add budesonide inhalation BID, increase methylpred to 40mg iv q12h Hypokalemia repleted overnight Check BNP Trop series reveiwed negative
[2024-11-27 13:16] LABS: ABG PCO2 38.4 mmHg (35-45); Arterial Blood Gas Hematocrit 45.5 % (42-52); Base Excess ABG -0.7 mmol/L (-2.0-2.0); Blood Gas Allen Test Pos; Blood Gas Operator Identificat MONRO; Blood Gas Sample Site Radial, left; Blood Gas Sample Type Arterial; HCO3 ABG 23.9 mmol/L (22-26); Oxygen Device NC; PO2 ABG 72.9 mmHg (80.0-100.0); PO2 FiO2 Ratio Arterial Blood 260
[2024-11-27] MEDS: levoFLOXacin 750 mg Tablet PO (13:19)
[2024-11-27 13:40] LABS: NT Pro B Type Natriuretic Pept < 36 pg/mL (0-125)
[2024-11-27] MEDS: budesonide 0.5 mg/2 mL Neb INHALATION (20:36)
[2024-11-27] MEDS: sennosides 8.6 mg Tablet 17.2 MG PO (21:54)
[2024-11-27] MEDS: enoxaparin 40 mg/0.4 mL Syringe SUBCUT (21:54)
[2024-11-28] VITALS (8 sets, daily range): BP systolic 118–142; BP diastolic 74–89; PULSE 62–107; RESP 16–19; TEMP 36.5–36.7; O2SAT 92–97
[2024-11-28] MEDS: pantoprazole DR 40 mg Tablet PO (05:27)
[2024-11-28 05:57] LABS: Basophils % 0.1 %; Hematocrit 45.7 % (37-53); Lymphocytes # 1.3 10^3/uL (0.8-4.8); Lymphocytes % 11.2 %; Mean Corpuscular HGB Conc 31.3 g/dL (30-55); Mean Corpuscular Hemoglobin 28.5 pg (27-33); Mean Platelet Volume 10.6 fL (7.4-10.4); Monocytes # 1.1 10^3/uL (0.2-0.9); Monocytes % 9.3 %; Neutrophils # 9.23 10^3/uL (1.8-7.7); Nucleated Red Blood Cells % 0 %; Platelet Count 260 10^3/cmm (157-399); Red Blood Count 5.02 10^6/uL (3.85-5.65); Red Cell Distribution Width 12.9 % (12.1-15.1); White Blood Count 11.69 10^3/uL (3.29-11.43)
[2024-11-28 06:26] LABS: Alanine Aminotransferase 46 U/L (0-41); Albumin Level 3.8 g/dL (3.5-5.2); Alkaline Phosphatase 75 U/L (40-130); Anion Gap 15.4 (5-19); Aspartate Amino Transferase 19 U/L (0-40); Blood Urea Nitrogen 10 mg/dL (6-20); Calcium 8.7 mg/dL (8.5-10.5); Carbon Dioxide 20 mmol/L (22-29); Chloride 107 mmol/L (98-107); Creatinine Clr Calc Pharmacy 207.9741; Globulin 3.1 g/dL (1.3-4.6); Glomerular Filtration Rate 113.5 mL/min (90-130); Glucose 134 mg/dL (65-115); Osmolality Calculated 287 mOsm/kg (285-295); Phosphorus 2.8 mg/dL (2.5-4.5); Potassium 4.4 mmol/L (3.5-5.1); Sodium 138 mmol/L (136-145); Total Bilirubin 0.4 mg/dL (0.15-1.2); Total Protein 6.9 g/dL (6.6-8.7)
[2024-11-28] MEDS: budesonide 0.5 mg/2 mL Neb INHALATION (08:20)
[2024-11-28] MEDS: ipratropium-albuterol 3 mL Neb INHALATION (08:20)
[2024-11-28] MEDS: benzonatate 100 mg Capsule 200 MG PO (09:06)
[2024-11-28] MEDS: levoFLOXacin 750 mg Tablet PO (09:07)
[2024-11-28] MEDS: methylPREDNISolone sod succ 40 mg/mL INJ IVP (09:07)
--- NOTE | 2024-11-28 11:11 | PC.CHAP ---
Pastoral Care Encounter/Spiritual Assessment Type of Contact [] Declined lot porter visit [] Patient/Family/Request visit [] Outpatient visit [] Follow-up visit [] Physician referral [] Code/Alert [] Routine visit [] Staff referral [] Actively dying [] Patient sleeping [] Family support [] [] Out of room [] Palliative care [] [] Receiving care in room [] Pre-surgical visit [] Trauma [] Long length of stay [] ICU visit [x] Other:Contact precautions. No visit. Relational/Emotional Strength [] Patient feels connected with others/family/visitors/staff [] Distress [] Loneliness/isolation [] Abandonment Spirituality of Patient [] Person of Fabienne [] Attends Mormonism of their Fabienne [] Believes in Prayer [] Reads Bible or Yarsanism materials [] There are Spiritual issues to be addressed Cardiac Monitor Technician Interventions [] Prayer [] Active listening [] Non-anxious presence [] Spiritual/emotional support [] Crisis/trauma care [] Spiritual counseling [] Bereavement support [] Provided bereavement packet [] Provided Bible/devotional materials [] Provided toy/stuffed animal, coloring book to patient or family member [] Provided Communion [] Anointing/[place] [] Salvation [] Completed spiritual assessment [] Other: Impact on Illness or Injury [] Angry [] Fearful [] Anxious [] Often cries [] Exhaustion [] Unable to work [] Unable to attend holiness [] Unable to walk/stand [] Unable to read [] Unable to drive [] Unable to eat/drink [] Unable to sleep [] Unable to be with family [] Patient intubated [] Other: Summary Time spent with patient
--- NOTE | 2024-11-28 12:50 | PC.NURSE ---
Discussed discharge with patient. New medications and 1 discontinued inhaler. Went over follow up appointment and [facility] delivered nebulizer machine. Went through the room to make sure patient got all belongings. Patient verbalized understanding of discharge.
--- NOTE | 2024-11-28 15:25 | P.DS_ITS ---
Discharge Providers Date of Admission: 11/27/24 04:22 Date of Discharge: November 28, 2024 Attending Provider at Admission: Remedios Zaragoza MD Attending Provider at Discharge: Ignacia Mosquera MD Diagnoses at Discharge Discharge Diagnosis (1) Asthma exacerbation: Status: Acute (2) Syncope: Status: Acute (3) Acute hypoxic respiratory failure: Status: Acute (4) Infection due to parainfluenza virus 3: Status: Acute (5) JOVANY (obstructive sleep apnea): Status: Acute (6) Cough: Status: Acute Reason for Visit Reason for Visit: SOB Brief History: 39-year-old male with a known history of asthma, currently on Ventolin and fluticasone inhalers, presented to the hospital with chief complaints of 2 weeks of progressive dyspnea and cough. Also history of CPAP dependent sleep apnea. He presented to the hospital when he became acutely short of breath on 11/26/2024. He had a new oxygen requirement of 2 L/min supplemental O2. His respiratory viral panel returned positive for parainfluenza. Overall clinical impression is that of acute parainfluenza infection resulting in acute asthma exacerbation. CT of the chest was negative for PE. No gross consolidation was noted. He was admitted to the hospital and treated with inhaled DuoNeb treatments, inhaled budesonide, and IV steroids. Steroids have been transitioned to prednisone 50 mg daily for 5 days at the time of discharge. Additionally added levofloxacin for possibility of acute bacterial bronchitis on top of the viral process. Inhalers were optimized to Advair discus 500/50 twice daily and albuterol rescue nebulization was added. Patient is in an improved state today. He was able to be weaned off of oxygen. Home O2 eval was completed prior to discharge, patient did not qualify for supplemental O2 as he was maintaining his oxygen levels at discharge. Physical Exam Narrative: General: No acute distress, AO x3 HEENT: PERRLA, pupils bilaterally equal and reactive, pallors not present Chest: Normal vesicular breath sounds, no added sounds, equal good air entry bilaterally CVS: S1-S2 regular, no murmurs, no tachycardia, no gallops, no rubs Abdomen: Soft, nontender, no organomegaly, bowel sounds present Neuro: No focal deficits, no facial deformity, AO x3, power 5/5 in all limbs Discharge Data Studies Completed and Pending Completed Studies During Hospitalization Category Date Time Status CT angio chest PE protcl [id number] Stat Cat Scan 11/26/24 21:37 Completed Pending at discharge Category Date Time Status Blood Culture Stat Lab 11/26/24 22:20 Results Sputum Culture and Gram Stain Stat Lab 11/27/24 07:01 Results Radiology Impressions Chest CTA 11/26/24 21:37 IMPRESSION: 1. No evidence of pulmonary embolism. 2. Low lung volumes with scattered hypoventilatory changes within the lungs. 3. Hepatic steatosis. 4. Hepatosplenomegaly. Laboratory Results WBC 11.69 10^3/uL (3.29-11.43) H 11/28/24 05:18 RBC 5.02 10^6/uL (3.85-5.65) 11/28/24 05:18 Hgb 14.30 g/dL (11.27-16.99) 11/28/24 05:18 Hct 45.7 % (37-53) 11/28/24 05:18 MCV 91.0 fl (82-101) 11/28/24 05:18 MCH 28.5 pg (27-33) 11/28/24 05:18 MCHC 31.3 g/dL (30-55) 11/28/24 05:18 RDW 12.9 % (12.1-15.1) 11/28/24 05:18 Plt Count 260 10^3/cmm (157-399) 11/28/24 05:18 MPV 10.6 fL (7.4-10.4) H 11/28/24 05:18 Neut % (Auto) 79.0 % 11/28/24 05:18 Lymph % (Auto) 11.2 % 11/28/24 05:18 [place] % (Auto) 9.3 % 11/28/24 05:18 Eos % (Auto) 0.0 % 11/28/24 05:18 Baso % (Auto) 0.1 % 11/28/24 05:18 Neut # (Auto) 9.23 10^3/uL (1.8-7.7) H 11/28/24 05:18 Lymph # (Auto) 1.3 10^3/uL (0.8-4.8) 11/28/24 05:18 [place] # (Auto) 1.1 10^3/uL (0.2-0.9) H 11/28/24 05:18 Eos # (Auto) 0.0 10^3/uL (0.0-0.8) 11/28/24 05:18 Baso # (Auto) 0.0 10^3/uL (0.0-0.1) 11/28/24 05:18 Nucleated RBC % (auto) 0 % 11/28/24 05:18 Nucleated RBCs # 0.0 /100WBC 11/28/24 05:18 PT 13.30 SECONDS (12.1-14.9) 11/26/24 21:34 INR 0.94 (0.8-1.2) 11/26/24 21:34 APTT 27.6 SECONDS (23.9-36.7) 11/26/24 21:34 Specimen Type Arterial 11/27/24 13:03 Sample Site Radial, left 11/27/24 13:03 ABG pH 7.40 (7.35-7.45) 11/27/24 13:03 ABG pCO2 38.4 mmHg (35-45) 11/27/24 13:03 ABG pO2 72.9 mmHg (80.0-100.0) L 11/27/24 13:03 ABG PO2/FiO2 Ratio 260 11/27/24 13:03 ABG HCO3 23.9 mmol/L (22-26) 11/27/24 13:03 ABG Base Excess -0.7 mmol/L (-2.0-2.0) 11/27/24 13:03 Flavio Test Pos 11/27/24 13:03 Hematocrit 45.5 % (42-52) 11/27/24 13:03 O2 Delivery Device Nc 11/27/24 13:03 O2 Liters/Min 2.0 % 11/27/24 13:03 FiO2 28.0 % 11/27/24 13:03 Painter Sign Maintenance ID [place] 11/27/24 13:03 Sodium 138 mmol/L (136-145) 11/28/24 05:18 Potassium 4.4 mmol/L (3.5-5.1) 11/28/24 05:18 Chloride 107 mmol/L (98-107) 11/28/24 05:18 Carbon Dioxide 20 mmol/L (22-29) L 11/28/24 05:18 Anion Gap 15.4 (5-19) 11/28/24 05:18 BUN 10 mg/dL (6-20) 11/28/24 05:18 Creatinine 0.8 mg/dL (0.7-1.2) 11/28/24 05:18 GFR Calculation 113.5 mL/min (90-130) 11/28/24 05:18 Glucose 134 mg/dL (65-115) H 11/28/24 05:18 Calculated Osmolality 287 mOsm/kg (285-295) 11/28/24 05:18 Lactic Acid 1.9 mmol/L (0.5-2.2) 11/26/24 21:34 Calcium 8.7 mg/dL (8.5-10.5) 11/28/24 05:18 Phosphorus 2.8 mg/dL (2.5-4.5) 11/28/24 05:18 Magnesium 2.0 mg/dL (1.7-2.3) 11/28/24 05:18 Total Bilirubin 0.4 mg/dL (0.15-1.2) 11/28/24 05:18 AST 19 U/L (0-40) 11/28/24 05:18 ALT 46 U/L (0-41) H 11/28/24 05:18 Alkaline Phosphatase 75 U/L (40-130) 11/28/24 05:18 Troponin T Baseline < 6 ng/L (0-15) 11/26/24 21:34 Troponin T 120 Minute < 6.0 ng/L (0-15) 11/26/24 23:36 Delta Troponin T 0 ABS# (0-10) 11/26/24 23:36 Troponin T Hi Sens 6Hr < 6.0 ng/L (0-15) 11/27/24 03:45 Troponin T Hi Sens 6Hr Delta 0 ng/L (0-12) 11/27/24 03:45 NT-Pro-B Natriuret Pep < 36 pg/mL (0-125) 11/27/24 03:45 Total Protein 6.9 g/dL (6.6-8.7) 11/28/24 05:18 Albumin 3.8 g/dL (3.5-5.2) 11/28/24 05:18 Globulin 3.1 g/dL (1.3-4.6) 11/28/24 05:18 Adenovirus (PCR) Not detected (NOT DETECT) 11/26/24 21:36 C. pneumoniae DNA (PCR) Not detected (NOT DETECT) 11/26/24 21:36 Coronavirus 229E (PCR) Not detected (NOT DETECT) 11/26/24 21:36 Human Metapneumovir PCR Not detected (NOT DETECT) 11/26/24 21:36 Influenza A (H1) PCR Not detected (NOT DETECT) 11/26/24 21:36 Influ A (H1/09) PCR Not detected (NOT DETECT) 11/26/24 21:36 Influenza A (H3) PCR Not detected (NOT DETECT) 11/26/24 21:36 Influenza Type A (PCR) Not detected (NOT DETECT) 11/26/24 21:36 Influenza Type B (PCR) Not detected (NOT DETECT) 11/26/24 21:36 M. pneumoniae (PCR) Not detected (NOT DETECT) 11/26/24 21:36 Parainfluenza 1 (PCR) Not detected (NOT DETECT) 11/26/24 21:36 Parainfluenza 2 (PCR) Not detected (NOT DETECT) 11/26/24 21:36 Parainfluenza 3 (PCR) Detected (NOT DETECT) A 11/26/24 21:36 Parainfluenza 4 (PCR) Not detected (NOT DETECT) 11/26/24 21:36 RSV Type A (PCR) Not detected (NOT DETECT) 11/26/24 21:36 RSV Type B (PCR) Not detected (NOT DETECT) 11/26/24 21:36 Entero/Rhino (PCR) Not detected (NOT DETECT) 11/26/24 21:36 SARS-CoV-2 (PCR) Not detected (NOT DETECT) 11/26/24 21:36 Vitals Last Vital Signs Temp 98.1 F 11/28/24 12:53 Pulse 107 H 11/28/24 12:53 Resp 16 11/28/24 12:53 BP 142/89 11/28/24 12:53 Pulse Ox 92 11/28/24 12:53 O2 Del Method Room Air 11/28/24 12:00 O2 Flow Rate 2 11/28/24 07:36 FiO2 28 11/27/24 23:29 Discharge Plan Discharge Patient Disposition: Home Condition: Stable Prescriptions: New benzonatate 100 mg Capsule 100 mg PO TID 10 Days Qty: 30 0RF levofloxacin 750 mg Tablet 750 mg PO DAILY 5 Days Qty: 5 0RF prednisone 50 mg tablet 50 mg PO DAILY 5 Days Qty: 5 0RF fluticasone propion-salmeterol [Advair Diskus] 500-50 mcg/dose blister with device 1 inh inhalation BID 30 Days Qty: 60 0RF albuterol sulfate 2.5 mg/0.5 mL solution for nebulization 2.5 mg inhalation Q6H PRN (Reason: shortness of breath or wheezing) Qty: 30 0RF Continued meloxicam 15 mg tablet 15 mg PO DAILY Qty: 30 1RF (DME) right knee economy knee brace See Rx Instructions .Route .MEDSUPPLY Qty: 1 0RF Rx Instructions: As directed albuterol sulfate [Ventolin HFA] 90 mcg/actuation HFA aerosol inhaler 2 puff inhalation 6XD PRN (Reason: shortness of breath or wheezing) Qty: 8.5 6RF omeprazole 20 mg tablet,delayed release (DR/EC) 20 mg PO DAILY hydrocodone-acetaminophen 7.5-325 mg tablet 1 tab PO Q6H PRN (Reason: pain) Qty: 20 0RF Discontinued budesonide-formoterol [Breyna] 160-4.5 mcg/actuation HFA aerosol inhaler 2 puff INHALATION BID Discharge Orders: Discharge Order (Routine); Ordered 11/28/24 Ordered By: Ignacia Mosquera Other Ambulatory Orders: DME: Nebulizer with Neb Kit (Order) Location: None Selected Ordered By: Ignacia Mosquera Referrals: Tana Downey FNP [Referring, Primary Care Provider] - 12/06/24 10:30 am Discharge Diet: Advance as tolerated Discharge Activity: Increase activity as tolerated Patient Instructions: Asthma Exacerbation - Adult, Albuterol (By breathing), Prednisone (By mouth), Levofloxacin (By mouth) (Levaquin, Levaquin Leva-paul), Opioid Safety Discharge Attestations Time Spent in Discharge Care*: greater than 30 min Quality Metrics Clinical Quality Measures [ No reported AMI, CVA or VTE this stay] Coding Level of Care Code Acute Code for [facility] Diagnoses Asthma exacerbation J45.901 Syncope R55 Acute hypoxic respiratory failure J96.01 Infection due to parainfluenza virus 3 B34.8 JOVANY (obstructive sleep apnea) G47.33 Cough R05.9
== END 2024-11-28 12:04 | disposition home or self-care (01) ==
LOC: ER 11-27 04:07 → MEDSURG 11-27 05:32
PROVIDERS: Admitting Provider Internal Medicine; Emergency Provider Student in an Organized Health Care Education/Training Program; Visit Provider Student in an Organized Health Care Education/Training Program
DX: J45.901 Unspecified asthma with (acute) exacerbation (principal); R55 Syncope and collapse; J96.01 Acute respiratory failure with hypoxia; B34.8 Other viral infections of unspecified site; G47.33 Obstructive sleep apnea (adult) (pediatric); K21.9 Gastro-esophageal reflux disease without esophagitis; E66.9 Obesity, unspecified; Z68.41 Body mass index [BMI] 40.0-44.9, adult; R00.0 Tachycardia, unspecified; E87.6 Hypokalemia; E83.42 Hypomagnesemia; Z87.891 Personal history of nicotine dependence; Z99.89 Dependence on other enabling machines and devices
CPT/HCPCS: 36415; 36600; 71275; 80053; 82803; 83605; 83735; 83880; 84100; 84484; 85025; 85610; 85730; 87040; 87070; 87205; 87486; 87581; 87633; 93005; 94640; 94660; 94664; 94760; 96365; 96366; 96367; 96372; 96375; 96376; 99285; G0378; J1650; J2919; J3475; J3480; J7030; J7626; J9999